=== PATIENT | female | born 1985 | race Caucasian/White ===

== ENCOUNTER → 2016-12-20 | Outpatient (CLI) | payer BC ==
[~2016-12-20] MED LIST: ASPI-84; BIRTH CONTROL PILL; HYDR1TAB; KETO-22 PO; ONDN4T
--- NOTE | 2016-12-20 17:46 | Diagnostic Imaging Report ---
INDICATION: Chronic pelvic pain. TECHNIQUE: Pelvic sonography performed with transabdominal and transvaginal views. FINDINGS: The uterus measured 5.6 x 4.2 x 3.0 cm. Endometrium measured 3 mm. There is no uterine mass. Right ovary measured 3.9 x 2.3 x 1.9 cm and contains a simple appearing cyst measuring 2.2 x 2.5 x 3.3 cm. There are a few smaller cysts in the right ovary as well. The left ovary measured 2.3 x 1.9 x 1.1 cm and contains a few small subcentimeter follicles. There is no free fluid. Color flow is present to the ovaries. IMPRESSION: Multiple small ovarian cysts in the right, including a 3.3 x 2.5 x 2.2 cm simple cyst. Left ovary shows normal follicles. There is color flow to both ovaries. The uterus appears unremarkable. Consider followup as clinically warranted. Dictated by: Dictated on workstation # [id number]
== END ==
LOC: RAD 15:42
PROVIDERS: ATTEND Obstetrics & Gynecology
DX: N83.201 Unspecified ovarian cyst, right side (principal); R10.2 Pelvic and perineal pain
CPT/HCPCS: 76830; 76856

== ENCOUNTER → 2019-01-22 | Outpatient (CLI) | payer BC ==
--- NOTE | 2019-01-22 16:25 | Diagnostic Imaging Report ---
PROCEDURE: US Renal Bilateral. TECHNIQUE: Multiple real-time grayscale images were obtained over the kidneys in various projections bilaterally. INDICATION: Hypertension. FINDINGS: There are no prior ultrasound studies available for comparison. The CT abdomen/pelvis exam of 03/10/2009 did note partial obstruction of the left collecting system due to a small calculus at the ureterovesical junction. Both kidneys were identified. The right kidney measures 10.1 x 4.8 x 4.7 cm while the left kidney measures 10.2 x 4.8 x 4.8 cm. There is no evidence for solid renal mass or for hydronephrosis of either kidney. The renal cortices are normal in thickness and echogenicity. There does appear to be good arterial blood flow to both kidneys but the renal arteries themselves were not specifically examined. If further evaluation of the renal arteries for hemodynamically significant stenosis is desired, then a bilateral renal Doppler exam would be recommended. The bladder was distended by urine. There is no obvious bladder mass evident. Both ureteral jets were noted. During the course of the exam a 3.3 x 2.1 x 2.3 cm benign-appearing cyst was seen associated with the left ovary. There is no solid pelvic mass or free fluid collection evident. IMPRESSION: 1. There is no evidence for a solid renal mass or for an acute abnormality of either kidney. 2. There is good arterial blood flow to both kidneys but the renal arteries themselves were not examined for renal artery stenosis. Recommendations, as above. 3. The bladder is grossly unremarkable. 4. There is a 3.3 x 2.1 x 2.3 cm cyst associated with the left ovary. Dictated by: Dictated on workstation # [id number]
== END ==
LOC: RAD 14:15
PROVIDERS: ATTEND Nurse Practitioner Family
DX: N83.202 Unspecified ovarian cyst, left side (principal); I10 Essential (primary) hypertension
CPT/HCPCS: 76770

== ENCOUNTER 2021-04-06 06:34 | Emergency (ER) | payer BC ==
[~2021-04-06] VITALS: Ht 150 cm; Wt 50.0 kg
--- OUTSIDE RECORDS SUMMARY | 2021-04-06 06:44 | XMS REPORT | CCD ---
Author Author Tomasa Baker Organization Leda Robles MD, [facility] Address [address] [place] [address] Phone Care Team Providers Care Machine Tender Name Role Phone Leda Robles PP Unavailable CCM Unavailable Summary Purpose Interface Exchange Insurance Providers Payer name Policy type / Coverage type Covered green party ID Effective Begin Date Effective End Date [facility] Commercial Insurance [id number] Unknown Unknown Family History Family History data not found Social History Social History Element Codes Description Effective Dates Marital status Unknown Single engaged Miah Santamaria 12/17/2018 Number of children Unknown 0 12/17/[address]: 117872074 Never smoker 12/17/[address]: 842592744 Never drinks alcohol 2018 Allergies, Adverse Reactions, Alerts Allergies, Adverse Reactions, Alerts data not found Problems Condition Codes Effective Dates Condition Status Essential (primary) hypertension ICD-10: I10 ICD-9: 401.9 01/14/2019 Active Generalized anxiety disorder ICD-10: F41.1 ICD-9: 300.00 12/17/2018 Active Major depressive disorder, single episode, moderate IC D-10: F32.1 ICD-9: 296.22 01/14/2019 Active Other acute sinusitis ICD-10: J01.80 ICD-9: 461.8 06/19/2019 Active Other allergic rhinitis ICD-10: J30.89 ICD-9: 477.8 06/19/2019 Active Acute bronchitis due to other specified organisms ICD- 10: J20.8 ICD-9: 466.0 05/10/2019 Active Hypertension Unknown 01/14/2019 Active Medications Medication Codes Instructions Start Date Stop Date Status Fill Instructions ProAir HFA 90 mcg/actuation aerosol inhaler RxNorm: 944157 2 Puff(s) Inhalation four times a day as needed dyspnea 02/15/2021 02/15/2021 Inactive Allergy and Congestion Relief 5 mg-120 mg tablet,exten d release 12 hr RxNorm: 3666946 USE DIRECTED 02/12/2021 02/26/2021 Active lisinopril 5 mg tablet RxNorm: 943139 1 Tablet(s) Oral every day 09/03/2021 Active Lexapro 10 mg tablet RxNorm: 055469 1 Tablet(s) Oral every nigh t at bedtime 09/08/2020 09/03/2021 Active ProAir HFA 90 mcg/actuation aerosol inhaler RxNorm: 051954 2 Puff(s) Inhalation four times a day as needed dyspnea 09/08/2020 09/08/2020 Inactive lisinopril 5 mg tablet RxNorm: 000239 Take 1 tablet by mouth on ce daily 09/03/2020 09/07/2020 Inactive Lexapro 10 mg tablet RxNorm: 519785 TAKE 1 TABLET BY MO UTH ONCE DAILY AT BEDTIME 09/03/2020 09/07/2020 Inactive Lexapro 10 mg tablet RxNorm: 240188 TAKE 1 TABLET BY MO UTH ONCE DAILY AT BEDTIME 05/27/2020 08/24/2020 Inactive lisinopril 5 mg tablet RxNorm: 147365 Take 1 tablet by mouth on ce daily 05/27/2020 08/24/2020 Inactive lisinopril 5 mg tablet RxNorm: 176738 Take 1 tablet by mouth on ce daily 01/02/2020 05/26/2020 Inactive Lexapro 10 mg tablet RxNorm: 748855 TAKE 1 TABLET BY MO UTH ONCE DAILY AT BEDTIME 01/02/2020 05/26/2020 Inactive Lexapro 10 mg tablet RxNorm: 987414 TAKE 1 TABLET BY MO UTH ONCE DAILY AT BEDTIME 12/04/2019 01/01/2020 Inactive lisinopril 5 mg tablet RxNorm: 673422 Take 1 tablet by mouth on ce daily 12/04/2019 01/01/2020 Inactive lisinopril 5 mg tablet RxNorm: 241388 TAKE 1 TABLET BY MOUTH ON CE DAILY 09/10/2019 12/03/2019 Inactive Lexapro 10 mg tablet RxNorm: 814424 TAKE 1 TABLET BY MO UTH ONCE DAILY AT BEDTIME 08/08/2019 12/03/2019 Inactive prednisone 10 mg tablet RxNorm: 193161 Tablet(s) Oral 60,50,40, 30,20,10 06/19/2019 09/07/2020 Inactive Zithromax Z-Farhat 250 mg tablet RxNorm: 555027 Tablet(s) Oral as directed 06/19/2019 09/07/2020 Inactive Kenalog 40 mg/mL suspension for injection RxNorm: 5367882 Milliliter(s) Injection 05/10/2019 05/10/2019 Inactive prednisone 20 mg tablet RxNorm: 635279 2 Tablet(s) Oral every day 0 05/10/2019 05/15/2019 Inactive Tessalon Perles 100 mg capsule RxNorm: 448136 1-2 Capsu le(s) Oral three times a day as needed 05/10/2019 09/07/2020 Inactive lisinopril 5 mg tablet RxNorm: 991230 1 Tablet(s) Oral every day 09/05/2019 Inactive Lexapro 10 mg tablet RxNorm: 179138 TAKE 1 TABLET BY MOUTH EVER Y DAY AT BEDTIME 04/08/2019 08/05/2019 Inactive lisinopril 5 mg tablet RxNorm: 898502 1 Tablet(s) Oral every day 05/08/2019 Inactive lisinopril 5 mg tablet RxNorm: 932229 1 Tablet(s) Oral every day 02/07/2019 Inactive Lexapro 10 mg tablet RxNorm: 425889 1 Tablet(s) Oral every nigh t at bedtime 01/14/2019 04/14/2019 Inactive Lexapro 10 mg tablet RxNorm: 099667 1 Tablet(s) PO QHS 12/17/2018 Inactive Aleve PM 220 mg-25 mg tablet RxNorm: 0618291 2 Tablet(s) PO daily Active Excedrin IB 200 mg tablet RxNorm: 423641 2 Tablet(s) PO daily 019 Active Fish Oil 1,000 mg capsule RxNorm: 1 Capsule(s) PO daily 12/17/2018 Active Alive Women's Energy 18 mg-400 mcg-80 mcg tablet RxNorm: oral 12/17/2018 Active Aviane 0.1 mg-20 mcg tablet RxNorm: 423736 oral 12/17/2018 Active Caltrate 600 oral RxNorm: 652878 oral 12/17/2018 Active Medication Administered Medication Codes Instructions Start Date Status Kenalog 40 mg/mL suspension for injection RxNorm: 7226324 Millilite r 05/10/2019 No longer Active Immunizations No Immunization data Results Observation Observation Code Item Item Code Result Date S ervice Location Ref Lab Testing [id number] Ref Specimens cohen ve been submitted to [facility] for analysis in accordance with the patient's insurance policy. If you do not receive results in a timely manner, please contact [facility] directly at [phone]. 09/08/2020 Unknown Procedures Procedure Codes Date TRIAMCINOLONE ACET INJ NOS 10 mg CPT-4: J3301 020 Vital Signs Date Vital 09/08/2020 Blood Pressure 1: 128/76 Code: 8480-6 BMI: 22.8 Code: 27575-8 Heart Rate 1: 80 bpm Height: 4'11" Code: 8302-2 SpO2: 98% Weight: 113 l bs Code: 40477-5 06/19/2019 Blood Pressure 1: 134/76 Code: 8480-6 BMI: 21.6 Code: 01633-4 Heart Rate 1: 88 bpm Height: 4'11" Code: 8302-2 SpO2: 98% Temperature: 36.9 (C) / 98.5 (F) Weight: 107 lbs Code: 22501-7 05/10/2019 Blood Pressure 1: 128/78 Code: 8480-6 Heart Rate 1: 82 bpm Height: Code: 8302-2 SpO2: 98% Weight: Code: 39638-8 01/14/2019 Blood Pressure 1: 138/80 Code: 8480-6 BMI: 21.2 Code: 20531-3 Heart Rate 1: 88 bpm Height: 4'11" Code: 8302-2 SpO2: 99% Weight: 105 l bs Code: 99770-8 12/17/2018 Blood Pressure 1: 132/72 Code: 8480-6 BMI: 21.2 Code: 03829-4 Heart Rate 1: 102 bpm Height: 4'11" Code: 8302-2 SpO2: 98% Weight: 105 l bs Code: 37554-3 Functional Status No Functional Status data Reason For Visit Reason For Visit Effective Dates Notes hypertension 09/08/2020 sinus congestion 06/19/2019 sinus congestion 05/10/2019 anxiety 01/14/2019 hypertension 12/17/2018 Encounters Encounter Performer Location Codes Date 19958 EST. PATIENT, LEVEL III Diagnosis: Essential (primary) hypertension[ICD10: I10] Diagnosis: Generalized anxiety disorder[ICD10: F41.1] Diagnosis: Major depressive disorder, single episode, moderate[ICD10: F32.1] Kenyatta Robles MD, [facility] CPT-4: 81901 09/08/2020 79607 EST. PATIENT, LEVEL IV Diagnosis: Other acute sinusitis[ICD10: J01.80] Diagnosis: Other allergic rhinitis[ICD10: J30.89] Kenyatta Abbott MD, [facility] CPT-4: 88487 06/19/2019 12447 EST. PATIENT, LEVEL III Diagnosis: Acute bronchitis due to other specified organisms[ICD10: J20.8] Kenyatta Robles MD, [facility] CPT-4: 05357 05/10/2019 98693 EST. PATIENT, LEVEL III Diagnosis: Generalized anxiety disorder[ICD10: F41.1] Diagnosis: Major depressive disorder, single episode, moderate[ICD10: F32.1] Diagnosis: Essential (primary) hypertension[ICD10: I10] Kenyatta Robles MD, [facility] CPT-4: 33594 01/14/2019 OFFICE VISIT, NEW - LEVEL 4 Diagnosis: Generalized anxiety disorder[ICD10: F41.1] Kenyatta Robles MD, [facility] CPT-4: 70693 12/17/2018 Plan of Care Planned Activity Notes Codes Status Date Visit Plan: Hypertension - well controll ed - continue with current medications, continue with no added salt diet. Pt has been encouraged to exercise daily. The pt has been advised to call the office if there are any acute concerns about change in blood pressure readings at home. Chronic Depression and anxiety - the pt has symptoms of chronic anxiety and depression that have been fairly well controlled since the last office visit. The pt has expected periods of exacerbation with abatement of the symptoms with change in situational exposure. No change in current medications. 09/08/2020 Appointment: Kenyatta Baker [facility] [phone] [id number] (30 min) Complex 09/08/2020 Patient Education: Patient Medication Summary Completed 09/08/2020 Patient Education: Hypertension Completed 09/08/2020 Patient Education: Depression Completed 09/08/2020 Care Plan: Cbc With Differential Pending 09/08/2020 Care Plan: Comp Metabolic Pending Care Plan: Tsh Pending 09/08/2020 Care Plan: Lipid Pending 09/08/2020 Visit Plan: Sinusitis - Pt has acute inf ection - pain in face, maxillary region, Pt informed to use decongestant, RX given to patient, sinus rinses also recommended. Call if symptoms do not show improvement. Allergies - chronic - recommended pt to use allergy medication as prescribed. Pt has been counseled as to the appropriate use of the medication. Pt to call if allergy symptoms are not controlled with the medication. If using nasal spray, instructions as follows: Nasal spray- use twice daily, one spray per nostril twice daily, after 30 minutes, rinse out nose with saline spray.. Use opposite hand per nostril to spray in the nasal steroid allergy spray. 06/19/2019 Appointment: Kenyatta Baker WPtel: [facility] (30 min) Complex 06/19/2019 Patient Education: Patient Medication Summary Completed 06/19/2019 Visit Plan: Bronchitis - acute case of b ronchitis identified. Pt has been given antibiotics, steroids as appropriate, and pt has been instructed to call if symptoms are not improved, or if symptoms acutely worsen. 05/10/2019 Appointment: [facility] Baker [phone] [id number] ([facility] min) Complex 05/10/2019 Patient Education: Patient Medication Summary Completed 05/10/2019 Visit Plan: Chronic Depression and anxie ty - the pt has symptoms of chronic anxiety and depression that have been fairly well controlled since the last office visit. The pt has expected periods of exacerbation with abatement of the symptoms with change in situational exposure. No change in current medications. Hypertension - uncontrolled - the patient's medications have been modified as documented in the visit note. The patient has been counseled to cut back on salt in diet for a no added salt diet, low fat diet, start an exercise program with low weight bearing exercises and higher aerobic activity for heart health. The patient is to check blood pressure readings as an outpatient and either fax, call, or email the readings to the office next week for practitioner to review. The pt is to call for acute concerns. 01/14/2019 Appointment: Kenyatta Baker WPtel: [phone] [facility] (30 min) Complex 01/14/2019 Patient Education: Patient Medication Summary Completed 01/14/2019 Patient Education: Depression Completed 01/14/2019 Patient Education: Hypertension Completed 01/14/2019 Visit Plan: Anxiety - the patient has un controlled anxiety and will benefit from an SSRI on a daily basis to attempt control of the symptoms of anxiety (tachycardia, overwhelming sensations, stress, insomnia, etc). Pt is aware of the risks and benefits of treatment with the above medications. 12/17/2018 Appointment: [facility]atta Baker [facility] [phone] [id number] New Patient 12/17/2018 Patient Education: Patient Medication Summary Completed 12/17/2018 Care Plan: Comp Metabolic Pending Care Plan: Cbc With Differential Pending 12/17/2018 Care Plan: Tsh Pending 12/17/2018 Care Plan: Lipid Pending 12/17/2018 Instructions Comment . Hypertension - well controlled - constantino nue with current medications, continue with no added salt diet. Pt has been encouraged to exercise daily. The pt has been advised to call the office if there are any acute concerns about change in blood pressure readings at home. Chronic Depression and anxiety - the pt has symptoms of chronic anxiety and depression that have been fairly well controlled since the last office visit. The pt has expected periods of exacerbation with abatement of the symptoms with change in situational exposure. No change in current medications. . Sinusitis - Pt has acute infection - p ain in face, maxillary region, Pt informed to use decongestant, RX given to patient, sinus rinses also recommended. Call if symptoms do not show improvement. Allergies - chronic - recommended pt to use allergy medication as prescribed. Pt has been counseled as to the appropriate use of the medication. Pt to call if allergy symptoms are not controlled with the medication. If using nasal spray, instructions as follows: Nasal spray- use twice daily, one spray per nostril twice daily, after 30 minutes, rinse out nose with saline spray.. Use opposite hand per nostril to spray in the nasal steroid allergy spray. . Bronchitis - acute case of bronchitis identified. Pt has been given antibiotics, steroids as appropriate, and pt has been instructed to call if symptoms are not improved, or if symptoms acutely worsen. goal is less then 140/90 . Chronic Depression and anxiety - the p t has symptoms of chronic anxiety and depression that have been fairly well controlled since the last office visit. The pt has expected periods of exacerbation with abatement of the symptoms with change in situational exposure. No change in current medications. Hypertension - uncontrolled - the patient's medications have been modified as documented in the visit note. The patient has been counseled to cut back on salt in diet for a no added salt diet, low fat diet, start an exercise program with low weight bearing exercises and higher aerobic activity for heart health. The patient is to check blood pressure readings as an outpatient and either fax, call, or email the readings to the office next week for practitioner to review. The pt is to call for acute concerns. . Anxiety - the patient has uncontrolled anxiety and will benefit from an SSRI on a daily basis to attempt control of the symptoms of anxiety (tachycardia, overwhelming sensations, stress, insomnia, etc). Pt is aware of the risks and benefits of treatment with the above medications. Medical Equipment No Medical Equipment data Health Concerns Section Health Concerns data not found Goals Section Goals data not found Interventions Section Interventions data not found Health Status Evaluations/Outcomes Section Health Status Evaluations/Outcomes data not found Advance Directives No Advance Directive data
--- OUTSIDE RECORDS SUMMARY | 2021-04-06 06:44 | XMS REPORT | CCD ---
Author Author Tomasa Baker Organization Leda Robles MD, [facility] Address [address] [place] [address] Phone Care Team Providers Care Milk Powder Grinder Name Role Phone Leda Robles PP Unavailable CCM Unavailable Summary Purpose Interface Exchange Insurance Providers Payer name Policy type / Coverage type Covered libertarian ID Effective Begin Date Effective End Date [facility] Commercial Insurance [id number] Unknown Unknown Family History Family History data not found Social History Social History Element Codes Description Effective Dates Marital status Unknown Single engaged Miah Santamaria 12/17/2018 Number of children Unknown 0 12/17/[address]: 504334076 Never smoker 12/17/[address]: 336527122 Never drinks alcohol 2018 Allergies, Adverse Reactions, [...] Start Date Stop Date Status Fill Instructions Allergy and Congestion Relief 5 mg-120 mg tablet,exten d release 12 hr RxNorm: 4456638 USE DIRECTED 03/08/2021 03/22/2021 Active Claritin-D 12 Hour 5 mg-120 mg tablet,extended release RxNor m: 6951374 1 Tablet(s) Oral as directed as needed 03/04/2021 03/08/2021 Inactive ProAir HFA 90 mcg/actuation aerosol inhaler RxNorm: 978062 2 Puff(s) Inhalation four times a day as needed dyspnea 02/15/2021 02/15/2021 Inactive Allergy and Congestion Relief 5 mg-120 mg tablet,exten d release 12 hr RxNorm: 1993609 USE DIRECTED 02/12/2021 02/26/2021 Inactive lisinopril 5 mg tablet RxNorm: 127213 1 Tablet(s) Oral every day 09/03/2021 Active Lexapro 10 mg tablet RxNorm: 269922 1 Tablet(s) Oral every nigh t at bedtime 09/08/2020 09/03/2021 Active ProAir HFA 90 mcg/actuation aerosol inhaler RxNorm: 963093 2 Puff(s) Inhalation four times a day as needed dyspnea 09/08/2020 09/08/2020 Inactive lisinopril 5 mg tablet RxNorm: 616728 Take 1 tablet by mouth on ce daily 09/03/2020 09/07/2020 Inactive Lexapro 10 mg tablet RxNorm: 463392 TAKE 1 TABLET BY MO [facility] ONCE DAILY AT BEDTIME 09/03/2020 09/07/2020 Inactive Lexapro 10 mg tablet RxNorm: 046297 TAKE 1 TABLET BY MO UT ONCE DAILY AT BEDTIME 05/27/2020 08/24/2020 Inactive lisinopril 5 mg tablet RxNorm: 284812 Take 1 tablet by mouth on ce daily 05/27/2020 08/24/2020 Inactive lisinopril 5 mg tablet RxNorm: 949716 Take 1 tablet by mouth on ce daily 01/02/2020 05/26/2020 Inactive Lexapro 10 mg tablet RxNorm: 083176 TAKE 1 TABLET BY MO UT ONCE DAILY AT BEDTIME 01/02/2020 05/26/2020 Inactive Lexapro 10 mg tablet RxNorm: 602164 TAKE 1 TABLET BY MO [facility] ONCE DAILY AT BEDTIME 12/04/2019 01/01/2020 Inactive lisinopril 5 mg tablet RxNorm: 991704 Take 1 tablet by mouth on ce daily 12/04/2019 01/01/2020 Inactive lisinopril 5 mg tablet RxNorm: 015779 TAKE 1 TABLET BY MOUTH ON CE DAILY 09/10/2019 12/03/2019 Inactive Lexapro 10 mg tablet RxNorm: 879520 TAKE 1 TABLET BY MO [facility] ONCE DAILY AT BEDTIME 08/08/2019 12/03/2019 Inactive prednisone 10 mg tablet RxNorm: 620794 Tablet(s) Oral 60,50,40, 30,20,10 06/19/2019 09/07/2020 Inactive Zithromax Z-Farhat 250 mg tablet RxNorm: 862053 Tablet(s) Oral as directed 06/19/2019 09/07/2020 Inactive Kenalog 40 mg/mL suspension for injection RxNorm: 7637713 Milliliter(s) Injection 05/10/2019 05/10/2019 Inactive prednisone 20 mg tablet RxNorm: 717419 2 Tablet(s) Oral every day 0 05/10/2019 05/15/2019 Inactive Tessalon Perles 100 mg capsule RxNorm: 537704 1-2 Capsu le(s) Oral three times a day as needed 05/10/2019 09/07/2020 Inactive lisinopril 5 mg tablet RxNorm: 055101 1 Tablet(s) Oral every day 09/05/2019 Inactive Lexapro 10 mg tablet RxNorm: 855271 TAKE 1 TABLET BY MOUTH EVER Y DAY AT BEDTIME 04/08/2019 08/05/2019 Inactive lisinopril 5 mg tablet RxNorm: 286861 1 Tablet(s) Oral every day 05/08/2019 Inactive lisinopril 5 mg tablet RxNorm: 416365 1 Tablet(s) Oral every day 02/07/2019 Inactive Lexapro 10 mg tablet RxNorm: 303637 1 Tablet(s) Oral every nigh t at bedtime 01/14/2019 04/14/2019 Inactive Lexapro 10 mg tablet RxNorm: 430974 1 Tablet(s) PO QHS 12/17/2018 Inactive Aleve PM 220 mg-25 mg tablet RxNorm: 1639560 2 Tablet(s) PO daily Active Excedrin IB 200 mg tablet RxNorm: 517241 2 Tablet(s) PO daily 019 Active Fish Oil 1,000 mg capsule RxNorm: 1 Capsule(s) PO daily 12/17/2018 Active Alive Women's Energy 18 mg-400 mcg-80 mcg tablet RxNorm: oral 12/17/2018 Active Aviane 0.1 mg-20 mcg tablet RxNorm: 252646 oral 12/17/2018 Active Caltrate 600 oral RxNorm: 260666 oral 12/17/2018 Active Medication Administered Medication Codes Instructions Start Date Status Kenalog 40 mg/mL suspension for injection RxNorm: 5672195 Millilite r 05/10/2019 No longer Active Immunizations No Immunization data Results Observation Observation Code Item Item Code Result Date S ervice Location Ref Lab Testing [id number] Ref Specimens cohen ve been submitted to [facility] for analysis in accordance with the patient's insurance policy. If you do not receive results in a timely manner, please contact [facility] directly at [phone]. 09/08/2020 Unknown Procedures Procedure Codes Date TRIAMCINOLONE ACET INJ NOS 10 mg CPT-4: J3301 020 Vital Signs Date Vital 09/08/2020 Blood Pressure 1: 128/76 Code: 8480-6 BMI: 22.8 Code: 44709-9 Heart Rate 1: 80 bpm Height: 4'11" Code: 8302-2 SpO2: 98% Weight: 113 l bs Code: 99625-6 06/19/2019 Blood Pressure 1: 134/76 Code: 8480-6 BMI: 21.6 Code: 99950-1 Heart Rate 1: 88 bpm Height: 4'11" Code: 8302-2 SpO2: 98% Temperature: 36.9 (C) / 98.5 (F) Weight: 107 lbs Code: 49496-8 05/10/2019 Blood Pressure 1: 128/78 Code: 8480-6 Heart Rate 1: 82 bpm Height: Code: 8302-2 SpO2: 98% Weight: Code: 87254-6 01/14/2019 Blood Pressure 1: 138/80 Code: 8480-6 BMI: 21.2 Code: 43820-0 Heart Rate 1: 88 bpm Height: 4'11" Code: 8302-2 SpO2: 99% Weight: 105 l bs Code: 50325-9 12/17/2018 Blood Pressure 1: 132/72 Code: 8480-6 BMI: 21.2 Code: 77566-3 Heart Rate 1: 102 bpm Height: 4'11" Code: 8302-2 SpO2: 98% Weight: 105 l bs Code: 44549-5 Functional Status No Functional Status data Reason For Visit Reason For Visit Effective Dates Notes hypertension 09/08/2020 sinus congestion 06/19/2019 sinus congestion 05/10/2019 anxiety 01/14/2019 hypertension 12/17/2018 Encounters Encounter Performer Location Codes Date 06410 EST. PATIENT, LEVEL III Diagnosis: Essential (primary) hypertension[ICD10: I10] Diagnosis: Generalized anxiety disorder[ICD10: F41.1] Diagnosis: Major depressive disorder, single episode, moderate[ICD10: F32.1] Kenyatta Robles MD, [facility] CPT-4: 15025 09/08/2020 29430 EST. PATIENT, LEVEL IV Diagnosis: Other acute sinusitis[ICD10: J01.80] Diagnosis: Other allergic rhinitis[ICD10: J30.89] Kenyatta Abbott MD, [facility] CPT-4: 44279 06/19/2019 83514 EST. PATIENT, LEVEL III Diagnosis: Acute bronchitis due to other specified organisms[ICD10: J20.8] Kenyatta Robles MD, [facility] CPT-4: 55845 05/10/2019 61304 EST. PATIENT, LEVEL III Diagnosis: Generalized anxiety disorder[ICD10: F41.1] Diagnosis: Major depressive disorder, single episode, moderate[ICD10: F32.1] Diagnosis: Essential (primary) hypertension[ICD10: I10] Kenyatta Robles MD, [facility] CPT-4: 00438 01/14/2019 OFFICE VISIT, NEW - LEVEL 4 Diagnosis: Generalized anxiety disorder[ICD10: F41.1] Kenyatta Robles MD, [facility] CPT-4: 88949 12/17/2018 Plan of Care Planned Activity Notes [...] current medications. 09/08/2020 [facility] [address] [facility] [facility] 09/08/2020 Patient Education: Patient [...] allergy spray. 06/19/2019 App[facility]ment: [facility] [facility] 06/19/2019 Patient Education: Patient Medication Summary Completed 06/19/2019 Visit Plan: Bronchitis - acute case of b ronchitis identified. Pt has been given antibiotics, steroids as appropriate, and pt has been instructed to call if symptoms are not improved, or if symptoms acutely worsen. 05/10/2019 App[facility]ment[facility] [address] [facility] [facility] 05/10/2019 Patient Education: Patient [...] acute concerns. 01/14/2019 Appointment: Kenyatta Baker WPtel: [facility] (30 min) Complex 01/14/2019 Patient Education: Patient [...] above medications. 12/17/2018 Appointment: Kenyatta Baker WPtel: [facility] New Patient 12/17/2018 Patient Education: Patient Medication [...]
--- OUTSIDE RECORDS SUMMARY | 2021-04-06 06:44 | XMS REPORT | CCD ---
Author Author Tomasa Baker Organization Leda Robles MD, [facility] Address [address] [place] [address] Phone Care Team Providers Care Stunt Man Name Role Phone PP Unavailable CCM Unavailable Summary Purpose Interface Exchange Insurance Providers Payer name Policy type / Coverage type Covered libertarian ID Effective Begin Date Effective End Date [facility] Commercial Insurance [id number] Unknown Unknown Family History Family History data not found Social History Social History Element Codes Description Effective Dates Marital status Unknown Single engaged Miah Santamaria 12/17/2018 Number of children Unknown 0 12/17/[address]: 811633796 Never smoker 12/17/[address]: 820110084 Never drinks alcohol 2018 Allergies, Adverse Reactions, [...] mg tablet,exten d release 12 hr RxNorm: 1911656 USE DIRECTED 02/12/2021 02/26/2021 Active ProAir HFA 90 mcg/actuation aerosol inhaler RxNorm: 618677 2 Puff(s) Inhalation four times a day as needed dyspnea 09/08/2020 No Stop Date Active lisinopril 5 mg tablet RxNorm: 620565 1 Tablet(s) Oral every day 09/03/2021 Active Lexapro 10 mg tablet RxNorm: 843735 1 Tablet(s) Oral every nigh t at bedtime 09/08/2020 09/03/2021 Active lisinopril 5 mg tablet RxNorm: 980071 Take 1 tablet by mouth on ce daily 09/03/2020 09/07/2020 Inactive Lexapro 10 mg tablet RxNorm: 386066 TAKE 1 TABLET BY MO UT ONCE DAILY AT BEDTIME 09/03/2020 09/07/2020 Inactive Lexapro 10 mg tablet RxNorm: 463779 TAKE 1 TABLET BY MO [facility] ONCE DAILY AT BEDTIME 05/27/2020 08/24/2020 Inactive lisinopril 5 mg tablet RxNorm: 196918 Take 1 tablet by mouth on ce daily 05/27/2020 08/24/2020 Inactive lisinopril 5 mg tablet RxNorm: 189414 Take 1 tablet by mouth on ce daily 01/02/2020 05/26/2020 Inactive Lexapro 10 mg tablet RxNorm: 223208 TAKE 1 TABLET BY MO UT ONCE DAILY AT BEDTIME 01/02/2020 05/26/2020 Inactive Lexapro 10 mg tablet RxNorm: 713453 TAKE 1 TABLET BY MO UT ONCE DAILY AT BEDTIME 12/04/2019 01/01/2020 Inactive lisinopril 5 mg tablet RxNorm: 228657 Take 1 tablet by mouth on ce daily 12/04/2019 01/01/2020 Inactive lisinopril 5 mg tablet RxNorm: 599051 TAKE 1 TABLET BY MOUTH ON CE DAILY 09/10/2019 12/03/2019 Inactive Lexapro 10 mg tablet RxNorm: 920198 TAKE 1 TABLET BY MO [facility] ONCE DAILY AT BEDTIME 08/08/2019 12/03/2019 Inactive prednisone 10 mg tablet RxNorm: 343827 Tablet(s) Oral 60,50,40, 30,20,10 06/19/2019 09/07/2020 Inactive Zithromax Z-Farhat 250 mg tablet RxNorm: 538475 Tablet(s) Oral as directed 06/19/2019 09/07/2020 Inactive Kenalog 40 mg/mL suspension for injection RxNorm: 1190527 Milliliter(s) Injection 05/10/2019 05/10/2019 Inactive prednisone 20 mg tablet RxNorm: 595393 2 Tablet(s) Oral every day 0 05/10/2019 05/15/2019 Inactive Tessalon Perles 100 mg capsule RxNorm: 904971 1-2 Capsu le(s) Oral three times a day as needed 05/10/2019 09/07/2020 Inactive lisinopril 5 mg tablet RxNorm: 055659 1 Tablet(s) Oral every day 09/05/2019 Inactive Lexapro 10 mg tablet RxNorm: 286324 TAKE 1 TABLET BY MOUTH EVER Y DAY AT BEDTIME 04/08/2019 08/05/2019 Inactive lisinopril 5 mg tablet RxNorm: 933725 1 Tablet(s) Oral every day 05/08/2019 Inactive lisinopril 5 mg tablet RxNorm: 567381 1 Tablet(s) Oral every day 02/07/2019 Inactive Lexapro 10 mg tablet RxNorm: 289384 1 Tablet(s) Oral every nigh t at bedtime 01/14/2019 04/14/2019 Inactive Lexapro 10 mg tablet RxNorm: 433263 1 Tablet(s) PO QHS 12/17/2018 Inactive Aleve PM 220 mg-25 mg tablet RxNorm: 5884773 2 Tablet(s) PO daily Active Excedrin IB 200 mg tablet RxNorm: 834696 2 Tablet(s) PO daily 019 Active Fish Oil 1,000 mg capsule RxNorm: 1 Capsule(s) PO daily 12/17/2018 Active Alive Women's Energy 18 mg-400 mcg-80 mcg tablet RxNorm: oral 12/17/2018 Active Aviane 0.1 mg-20 mcg tablet RxNorm: 833245 oral 12/17/2018 Active Caltrate 600 oral RxNorm: 853422 oral 12/17/2018 Active Medication Administered Medication Codes Instructions Start Date Status Kenalog 40 mg/mL suspension for injection RxNorm: 1856181 Millilite r 05/10/2019 No longer Active Immunizations No Immunization data Results Observation Observation Code Item Item Code Result Date S ervice Location Ref Lab Testing [id number] Ref Specimens cohen ve been submitted to [facility] for analysis in accordance with the patient's insurance policy. If you do not receive results in a timely manner, please contact [facility] directly at [phone]. 09/08/2020 Unknown Procedures Procedure Codes Date TRIAMCINOLONE ACET INJ NOS 10 mg CPT-4: J3301 020 Vital Signs Date Vital 09/08/2020 Blood Pressure 1: 128/76 Code: 8480-6 BMI: 22.8 Code: 54895-9 Heart Rate 1: 80 bpm Height: 4'11" Code: 8302-2 SpO2: 98% Weight: 113 l bs Code: 00346-4 06/19/2019 Blood Pressure 1: 134/76 Code: 8480-6 BMI: 21.6 Code: 50086-5 Heart Rate 1: 88 bpm Height: 4'11" Code: 8302-2 SpO2: 98% Temperature: 36.9 (C) / 98.5 (F) Weight: 107 lbs Code: 94423-3 05/10/2019 Blood Pressure 1: 128/78 Code: 8480-6 Heart Rate 1: 82 bpm Height: Code: 8302-2 SpO2: 98% Weight: Code: 35175-2 01/14/2019 Blood Pressure 1: 138/80 Code: 8480-6 BMI: 21.2 Code: 56417-2 Heart Rate 1: 88 bpm Height: 4'11" Code: 8302-2 SpO2: 99% Weight: 105 l bs Code: 78109-2 12/17/2018 Blood Pressure 1: 132/72 Code: 8480-6 BMI: 21.2 Code: 01169-7 Heart Rate 1: 102 bpm Height: 4'11" Code: 8302-2 SpO2: 98% Weight: 105 l bs Code: 34801-9 Functional Status No Functional Status data Reason For Visit Reason For Visit Effective Dates Notes hypertension 09/08/2020 sinus congestion 06/19/2019 sinus congestion 05/10/2019 anxiety 01/14/2019 hypertension 12/17/2018 Encounters Encounter Performer Location Codes Date 59383 EST. PATIENT, LEVEL III Diagnosis: Essential (primary) hypertension[ICD10: I10] Diagnosis: Generalized anxiety disorder[ICD10: F41.1] Diagnosis: Major depressive disorder, single episode, moderate[ICD10: F32.1] Kenyatta Robles MD, [facility] CPT-4: 46316 09/08/2020 45365 EST. PATIENT, LEVEL IV Diagnosis: Other acute sinusitis[ICD10: J01.80] Diagnosis: Other allergic rhinitis[ICD10: J30.89] Kenyatta Abbott MD, [facility] CPT-4: 18020 06/19/2019 94192 EST. PATIENT, LEVEL III Diagnosis: Acute bronchitis due to other specified organisms[ICD10: J20.8] Kenyatta Robles MD, [facility] CPT-4: 12979 05/10/2019 88206 EST. PATIENT, LEVEL III Diagnosis: Generalized anxiety disorder[ICD10: F41.1] Diagnosis: Major depressive disorder, single episode, moderate[ICD10: F32.1] Diagnosis: Essential (primary) hypertension[ICD10: I10] Kenyatta Robles MD, [facility] CPT-4: 33052 01/14/2019 OFFICE VISIT, NEW - LEVEL 4 Diagnosis: Generalized anxiety disorder[ICD10: F41.1] Kenyatta Robles MD, [facility] CPT-4: 56930 12/17/2018 Plan of Care Planned Activity Notes [...] current medications. 09/08/2020 Appointment: Kenyatta Baker WPtel: [address] [place], [place] [id number] (30 min) [facility] 09/08/2020 Patient Education: Patient Medication Summary Completed [...] allergy spray. 06/19/2019 Appointment: Kenyatta Baker WPtel: [facility] (30 min) Complex 06/19/2019 Patient Education: Patient Medication Summary Completed 06/19/2019 Visit Plan: Bronchitis - acute case of b ronchitis identified. Pt has been given antibiotics, steroids as appropriate, and pt has been instructed to call if symptoms are not improved, or if symptoms acutely worsen. 05/10/2019 Appointment: Kenyatta Baker WPtel: [address] [facility] (30 min) Complex 05/10/2019 Patient Education: Patient [...] concerns. 01/14/2019 Appointment: Kenyatta Baker WPtel: [address] [facility] (30 min) Complex 01/14/2019 Patient Education: [...] medications. 12/17/2018 Appointment: Kenyatta Baker WPtel: [address] [facility] New Patient 12/17/2018 Patient Education: Patient Medication [...]
[2021-04-06] MEDS ORDERED: FAMOTIDINE 20MG/2ML IV (PEPCID) IV STA (06:56)
[2021-04-06] MEDS ORDERED: ANTACID SUSP 30 ML UDC (MYLANTA) PO ONE (07:00)
[2021-04-06] MEDS ORDERED: LIDOCAINE 2% VISCOUS 15 ML UDC PO ONE (07:00)
[2021-04-06] MEDS ORDERED: ONDANSETRON 4 MG/2 ML (SDV) Z0FRAN IVP ONE (07:00)
--- NOTE | 2021-04-06 07:02 | ED Abdominal Pain ---
General Chief Complaint: Abdominal/GI Problems Stated Complaint: UPPER ABD PAIN,SHAKEY Source of Information: Patient Exam Limitations: No Limitations (RENE HUSTON MED STUDENT) History of Present Illness Date Seen by Provider: Apr 06, 2021 Time Seen by Provider: 06:50 Initial Comments Edie is a 35 yo F with a history of GERD who presents to the ED today via private conveyance for abdominal pain. Pt states the pain is an epigastric burning pain which began around 0300 this morning. She took antacids for her symptoms which did not help. Pain has been constant. Rates her pain a 6/10. Admits to eating a spicy meal for dinner last night. Also reports associated nausea without vomiting as well as shakiness. Denies any GI/ complaints, fever, chills, chest pain, sob. Timing/Duration: 4-6 Hours Severity/Quality: Moderate Location: RUQ, LUQ, Epigastric Radiation: No Radiation Activities at Onset: Sleeping Modifying Factors: Improves With Palpation Associated Symptoms: Nausea/Vomiting, Other (shakiness ) (RENE HUSTON MED STUDENT) Initial Comments Patient states she has had this pain before and typically antacids would help. She rates it consistently is about a 7 out of 10. (JACE CASTILLO) Allergies and Home Medications Allergies Coded Allergies: codeine (Unverified Allergy, Mild, 03/07/09) Patient Home Medication List Home Medication List Reviewed: Yes (JACE CASTILLO) Aspirin (Maximo) 81 Mg Tablet., (Reported) Entered as Reported by: XIANG MENDEZ on 03/07/09 1114 Hydrocodone Bit/Acetaminophen (Vicodin 5-500 Tablet) 1 Each Tablet, (Reported) Entered as Reported by: ELIZABETH HALL on 03/10/09 1737 Hydrocodone/Acetaminophen (Hydrocodone-Acetamin 5-325 mg) 1 Each Tablet, 1 TAB PO Q6H PRN for PAIN-MODERATE (5-7) Prescribed by: JACE CASTILLO on 04/06/21 0831 Ketorolac Tromethamine (Toradol) 10 Mg Tablet, 10 MG PO Q 6 HOURS Prescribed by: JIM CASEY on 03/10/092007 Ondansetron (Ondansetron Odt) 4 Mg Tab.rapdis, 4 MG PO Q6H PRN for NAUSEA/VOMITING Prescribed by: JACE CASTILLO on 04/06/21 0831 Ondansetron Hcl (Zofran) 4 Mg Tab, (Reported) Entered as Reported by: ELIZABETH HALL on 03/10/09 173 Pantoprazole Sodium (Pantoprazole Sodium) 20 Mg Tablet.dr, 20 MG PO BID Prescribed by: JACE CASTILLO on 04/06/21 08 Sucralfate (Carafate) 1 Gm Tablet, 1 GM PO QIDACHS Prescribed by: JACE CASTILLO on 04/06/21 08 [ Control Pill] , (Reported) Entered as Reported by: GABINO CARDENAS on 03/18/09 0705 Review of Systems Review of Systems Constitutional: No chills, No fever EENTM: No Blurred Vision, No Double Vision Respiratory: Denies Cough, Denies Shortness of Air Cardiovascular: Denies Chest Pain, Denies Palpitations Gastrointestinal: Denies Abdomen Distended; Abdominal Pain; Denies Constipated, Denies Diarrhea; Nausea; Denies Vomiting Genitourinary: Denies Burning, Denies Discharge Musculoskeletal: No back pain, No joint pain Skin: No change in color, No change in hair/nails Psychiatric/Neurological: Denies Anxiety, Denies Depressed Endocrine: Denies Excessive Sweating, Denies Flushing (RENE HUSTON MED STUDENT) All Other Systems Reviewed Negative Unless Noted: Yes (JACE CASTILLO) Past Ecftkkh-Ldibtz-Zsqphm Hx Patient Social History Tobacco Use?: No Use of E-Cig and/or Vaping dev: No (JACE CASTILLO) Past Medical History Reproductive Disorders: No (RENE HUSTON MED STUDENT) Physical Exam Vital Signs Vital Signs - First Documented 04/06/21 06:47 Temp 36.3 Pulse 63 Resp 14 B/P (MAP) 113/76 (88) Pulse Ox 100 O2 Delivery Room Air (JACE CASTILLO) Vital Signs Capillary Refill : (RENE HUSTON MED STUDENT) Height/Weight/BMI Height: '" Weight: lbs. oz. kg; BMI Method: General Appearance: WD/WN, no apparent distress HEENT: PERRL/EOMI, normal ENT inspection Neck: non-tender, full range of motion, supple, normal inspection Respiratory: chest non-tender, lungs clear, normal breath sounds, no respiratory distress, no accessory muscle use Cardiovascular: normal peripheral pulses, regular rate, rhythm, no edema, no gallop, no JVD, no murmur Peripheral Pulses: 2+ Dorsalis Pedis (R), 2+ Left Dors-Pedis (L), 2+ Radial Pulses (R), 2+ Radial Pulses (L) Gastrointestinal: normal bowel sounds, soft, no organomegaly, no pulsatile mass, tenderness (epigastric) Extremities: normal range of motion, non-tender, normal inspection, no pedal edema, no calf tenderness Back: normal inspection, no CVA tenderness, no vertebral tenderness Neurologic/Psychiatric: no motor/sensory deficits, alert, normal mood/affect, oriented x 3 Skin: normal color, warm/dry (RENE HUSTON MED STUDENT) Gastrointestinal: tenderness (epigastric), other (Negative for right upper quadrant Carlos sign, mesenteric signs.) (JACE CASTILLO) Progress/Results/Core Measures Results/Orders Lab Results Laboratory Tests Test 04/06/21 07:00 Range/Units White Blood Count 13.3 H 4.3-11.0 10^3/uL Red Blood Count 4.12 3.80-5.11 10^6/uL Hemoglobin 13.0 11.5-16.0 g/dL Hematocrit 38 35-52 % Mean Corpuscular Volume 92 80-99 fL Mean Corpuscular Hemoglobin 32 25-34 pg Mean Corpuscular Hemoglobin Concent 35 32-36 g/dL Red Cell Distribution Width 11.8 10.0-14.5 % Platelet Count 329 130-400 10^3/uL Mean Platelet Volume 8.9 L 9.0-12.2 fL Immature Granulocyte % (Auto) 0 % Neutrophils (%) (Auto) 74 42-75 % Lymphocytes (%) (Auto) 20 12-44 % Monocytes (%) (Auto) 5 0-12 % Eosinophils (%) (Auto) 1 0-10 % Basophils (%) (Auto) 0 0-10 % Neutrophils # (Auto) 9.9 H 1.8-7.8 10^3/uL Lymphocytes # (Auto) 2.6 1.0-4.0 10^3/uL Monocytes # (Auto) 0.6 0.0-1.0 10^3/uL Eosinophils # (Auto) 0.1 0.0-0.3 10^3/uL Basophils # (Auto) 0.0 0.0-0.1 10^3/uL Immature Granulocyte # (Auto) 0.0 0.0-0.1 10^3/uL Urine Color YELLOW Urine Clarity CLEAR Urine pH 6.0 5-9 Urine Specific [place] >=1.030 1.016-1.022 Urine Protein NEGATIVE NEGATIVE Urine Glucose (UA) NEGATIVE NEGATIVE Urine Ketones NEGATIVE NEGATIVE Urine Nitrite NEGATIVE NEGATIVE Urine Bilirubin NEGATIVE NEGATIVE Urine Urobilinogen 0.2 < = 1.0 MG/DL Urine Leukocyte Esterase NEGATIVE NEGATIVE Urine RBC (Auto) 1+ H NEGATIVE Urine RBC 5-10 H /HPF Urine WBC 0-2 /HPF Urine Squamous Epithelial Cells 2-5 /HPF Urine Crystals PRESENT H /LPF Urine Amorphous Sediment FEW JW URATES H /LPF Urine Bacteria FEW H /HPF Urine Casts NONE /LPF Urine Mucus SMALL H /LPF Urine Culture Indicated YES Sodium Level 139 135-145 MMOL/L Potassium Level 3.4 L 3.6-5.0 MMOL/L Chloride Level 108 H 98-107 MMOL/L Carbon Dioxide Level 21 21-32 MMOL/L Anion Gap 10 5-14 MMOL/L Blood Urea Nitrogen 18 7-18 MG/DL Creatinine 0.83 0.60-1.30 MG/DL Estimat Glomerular Filtration Rate 77 BUN/Creatinine Ratio 22 Glucose Level 126 H 70-105 MG/DL Calcium Level 8.6 8.5-10.1 MG/DL Corrected Calcium 8.8 8.5-10.1 MG/DL Total Bilirubin 0.2 0.1-1.0 MG/DL Aspartate Amino Transf (AST/SGOT) 22 5-34 U/L Alanine Aminotransferase (ALT/SGPT) 22 0-55 U/L Alkaline Phosphatase 32 L 40-136 U/L C-Reactive Protein High Sensitivity 0.43 0.00-0.50 MG/DL Total Protein 6.4 6.4-8.2 GM/DL Albumin 3.7 3.2-4.5 GM/DL Lipase 40 8-78 U/L (JACE CASTILLO) My Orders Orders - JACE CASTILLO Ua Culture If Indicated (04/06/21 06:47) Urine Bedside (04/06/21 06:47) Lidocaine 2% Viscous 15 Ml (Xylocaine Vi (04/06/21 07:00) Antacid Suspension (Mylanta Suspension (04/06/21 07:00) Famotidine Injection (Pepcid Injection) (04/06/21 06:56) Cbc With Automated Diff (04/06/21 06:56) Comprehensive Metabolic Panel (04/06/21 06:56) Lipase (04/06/21 06:56) Ondansetron Injection (Zofran Injectio (04/06/21 07:00) Hs C Reactive Protein (04/06/21 07:11) Urine Culture (04/06/21 07:00) Ketorolac Injection (Toradol Injection) (04/06/21 07:45) Us Gallbladder [id number] (04/06/21 07:43) Ns Iv 500 Ml (Sodium Chloride 0.9%) (04/06/21 07:45) Ed Iv/Invasive Line Start (04/06/21 07:53) Ns Iv 1000 Ml (Sodium Chloride 0.9%) (04/06/21 08:00) (JACE CASTILLO) Medications Given in ED Current Medications Medications Dose Ordered Sig/Jennifer Route Start Time Stop Time Status Last Admin Dose Admin Al Hydrox/Mg Hydrox/Simethicone 30 ml ONCE ONCE PO 04/06/21 07:00 04/06/21 07:01 DC 04/06/21 07:21 30 ML Ketorolac Tromethamine 30 mg ONCE ONCE IVP 04/06/21 07:45 04/06/21 07:46 DC 04/06/21 07:49 30 MG Lidocaine HCl 15 ml ONCE ONCE PO 04/06/21 07:00 04/06/21 07:01 DC 04/06/21 07:21 15 ML Ondansetron HCl 8 mg ONCE ONCE IVP 04/06/21 07:00 04/06/21 07:01 DC 04/06/21 07:10 8 MG (JACE CASTILLO) Vital Signs/I&O 04/06/21 04/06/21 06:47 08:40 Temp 36.3 Pulse 63 80 Resp 14 18 B/P (MAP) 113/76 (88) 115/68 Pulse Ox 100 100 O2 Delivery Room Air Room Air (JACE CASTILLO) Progress Progress Note #1: Time: 07:07 Progress Note I attest that I saw this patient alongside the medical student and agree with his documented history, physical exam and review of systems except as otherwise noted. GI cocktail, Pepcid IV and labs. If she has persistent pain we can give her some Toradol and get a gallbladder ultrasound however this seems to be more likely gastritis. Progress Note #2: Time: 07:44 Progress Note Patient states that her symptoms are only with marginal improvement, 6 out of 7. There are some Toradol and get an ultrasound of her gallbladder to rule out significant pathology and then we can set her up with Dr. Milton for EGD outpatient. Progress Note #3: Time: 08:22 Progress Note After Toradol and ultrasound patient rates her pain is about a 5 out of 10 which is a significant improvement. We will put her out on some hydrocodone, Carafate, pantoprazole and plans to follow-up with Dr. Milton for appropriate outpatient management. (JACE CASTILLO) Diagnostic Imaging Diagonstic Imaging: Ultrasound Plain Films/CT/US/NM/MRI: abdomen, pelvis Comments Negative for obstruction or inflammation of the gallbladder/bile ducts. [facility] [place] [place], [place] NAME: EDIE [facility]IVASAN [facility] REC#: [id number] PT STATUS: DEP ER : 1985 PHYSICIAN: JACE CASTILLO MD ADMIT DATE: 04/06/21/ER Signed Date of Exam:04/06/21 US GALLBLADDER [id number] EXAMINATION: US Abdomen limited. TECHNIQUE: Multiple real-time grayscale images were obtained over the right upper quadrant in various projections. HISTORY: Epigastric pain COMPARISON: None available. FINDINGS: The liver is normal in size. The liver is normal in echogenicity. No focal lesions are seen. The portal vein is patent with hepatopedal flow. Gallbladder is normal without wall thickening or pericholecystic fluid. Sonographic Carlos sign is negative. Common duct measures 5 mm. There is no biliary ductal dilation. The visualized portions of the pancreas are normal. The right kidney is normal without hydronephrosis. IMPRESSION: 1. Unremarkable right upper quadrant ultrasound. Dictated by: Dictated on workstation # [id number] Dict: 04/06/2146 Trans: 04/06/2147 [facility] [id number] Interpreted by: MIC HOYOS MD Electronically signed by: MIC HOYOS MD 04/06/21 0847 Reviewed: Reviewed by Me (JACE CASTILLO) Departure Impression Primary Impression: Gastritis Qualified Codes: K29.00 - Acute gastritis without bleeding Disposition: HOME, SELF-CARE Condition: Stable Departure-Patient Inst. Decision time for Depature: 08:23 (JACE CASTILLO) Referrals: STEVE PIERCE MD (PCP/Family) Primary Care Physician ARBEN MILTON DO Patient Instructions: Gastritis (DC) Add. Discharge Instructions: Pantoprazole 20 mg twice a day for the next month. Carafate 1 tablet half an hour before meals and at bedtime for the next 2 weeks. Tums, Rolaids, Mylanta/Maalox etc. as necessary for pain. Hydrocodone 1 tablet every 6 hours as necessary for severe breakthrough pain. Ondansetron 1 tablet every 6 hours under the tongue as necessary for nausea or vomiting Call Dr. Milton, general surgery and request follow-up in the next 1 to 2 weeks in the clinic to help manage your symptoms. I encourage you to return to the nearest ER for intractable pain or other worrisome symptoms. All discharge instructions reviewed with patient and/or family. Voiced understanding. Scripts Pantoprazole Sodium (Pantoprazole Sodium) 20 Mg Tablet. 20 MG PO BID for 30 Days, #60 TAB 0 Refills Prov: JACE CASTILLO 04/06/21 Hydrocodone/Acetaminophen (Hydrocodone-Acetamin 5-325 mg) 1 Each Tablet 1 TAB PO Q6H PRN for PAIN-MODERATE (5-7), #15 TAB 0 Refills Prov: JACE CASTLILO 04/06/21 Sucralfate (Carafate) 1 Gm Tablet 1 GM PO QIDACHS for 14 Days, #56 TAB 0 Refills Prov: JACE CASTILLO 04/06/21 Ondansetron (Ondansetron Odt) 4 Mg Tab.rapdis 4 MG PO Q6H PRN for NAUSEA/VOMITING, #15 TAB 0 Refills Prov: JACE CASTILLO 04/06/21 Copy Copies To 1: ARBEN MILTON [facility] STUDENT Apr 06, 2021 07:02 JACE CASTILLO Apr 06, 2021 07:09
[2021-04-06 07:10] LABS: BASOPHILS % (AUTO) 0 % (0-10); BILIRUBIN,URINE NEGATIVE (NEGATIVE); CLARITY,URINE CLEAR; COLOR,URINE YELLOW; EOSINOPHILS # (AUTO) 0.1 10^3/uL (0.0-0.3); EOSINOPHILS % (AUTO) 1 % (0-10); GLUCOSE, URINE (UA) NEGATIVE (NEGATIVE); HEMATOCRIT 38 % (35-52); KETONES,URINE NEGATIVE (NEGATIVE); LEUKOCYTE ESTERASE ,URINE NEGATIVE (NEGATIVE); LYMPHOCYTES # (AUTO) 2.6 10^3/uL (1.0-4.0); LYMPHOCYTES % (AUTO) 20 % (12-44); MEAN CORPUSCULAR HEMOGLOBIN 32 pg (25-34); MEAN CORPUSCULAR HGB CONC 35 g/dL (32-36); MEAN CORPUSCULAR VOLUME 92 fL (80-99); MEAN PLATELET VOLUME 8.9 fL (9.0-12.2); MONOCYTES # (AUTO) 0.6 10^3/uL (0.0-1.0); MONOCYTES % (AUTO) 5 % (0-12); NEUTROPHILS # (AUTO) 9.9 10^3/uL (1.8-7.8); NEUTROPHILS % (AUTO) 74 % (42-75); NITRITE,URINE NEGATIVE (NEGATIVE); PLATELET COUNT 329 10^3/uL (130-400); PROTEIN,URINE NEGATIVE (NEGATIVE); WHITE BLOOD COUNT 13.3 10^3/uL (4.3-11.0)
[2021-04-06 07:20] LABS: ALBUMIN 3.7 GM/DL (3.2-4.5)
[2021-04-06 07:21] LABS: POTASSIUM 3.4 MMOL/L (3.6-5.0)
[2021-04-06 07:22] LABS: AMORPHOUS SEDIMENT,UR FEW AMOR URATES /LPF; BACTERIA,URINE FEW /HPF; CALCIUM 8.6 MG/DL (8.5-10.1); WBC,URINE 0-2 /HPF
[2021-04-06 07:23] LABS: TOTAL PROTEIN 6.4 GM/DL (6.4-8.2)
[2021-04-06 07:25] LABS: BILIRUBIN,TOTAL 0.2 MG/DL (0.1-1.0)
[2021-04-06 07:27] LABS: CREATININE SERUM 0.83 MG/DL (0.60-1.30)
[2021-04-06] MEDS ORDERED: KETOROLAC 30 MG/ML VIAL IVP ONE (07:45)
[2021-04-06] MEDS ORDERED: NS IV 500 ML 500 ML IV ONE (07:45)
[2021-04-06] MEDS ORDERED: NS IV 1000 ML 1,000 ML IV SCH (08:00)
[2021-04-06] MEDS ORDERED: PANT20TA18 PO (08:31)
[2021-04-06] MEDS ORDERED: ONDA4TAB11 PO (08:31)
[2021-04-06] MEDS ORDERED: SUCR1TAB36 PO (08:31)
[2021-04-06] MEDS ORDERED: ACHD5005 PO (08:31)
[2021-04-06 08:40] VITALS: BP 115/68
--- NOTE | 2021-04-06 08:48 | Diagnostic Imaging Report ---
EXAMINATION: US Abdomen limited. TECHNIQUE: Multiple real-time grayscale images were obtained over the right upper quadrant in various projections. HISTORY: Epigastric pain COMPARISON: None available. FINDINGS: The liver is normal in size. The liver is normal in echogenicity. No focal lesions are seen. The portal vein is patent with hepatopedal flow. Gallbladder is normal without wall thickening or pericholecystic fluid. Sonographic Carlos sign is negative. Common duct measures 5 mm. There is no biliary ductal dilation. The visualized portions of the pancreas are normal. The right kidney is normal without hydronephrosis. IMPRESSION: 1. Unremarkable right upper quadrant ultrasound. Dictated by: Dictated on workstation # [id number]
== END 2021-04-06 08:39 | disposition home or self-care (01) ==
LOC: EDUNIT# 06:34 → ER 06:41
DX: K29.70 Gastritis, unspecified, without bleeding (principal); Z79.82 Long term (current) use of aspirin
CPT/HCPCS: 36415; 76705; 80053; 81000; 83690; 84703; 85025; 86141; 87088